=== PATIENT | male | born 1990 | race Hispanic/Latino ===

== ENCOUNTER 2017-11-10 10:08 | Emergency (ER) | payer BC ==
[2018-01-25] MEDS ORDERED: DIAZ10TA4 PO (13:06)
[2018-01-25] MEDS ORDERED: TYL3 PO (13:06)
[2018-01-25] MEDS ORDERED: BACL10TA PO (13:06)
[2018-01-25] MEDS ORDERED: NAPR-1023 PO (13:06)
[2018-01-25] MEDS ORDERED: TRAM-355 PO (13:06)
== END 2017-11-10 11:10 | disposition home or self-care (01) ==
LOC: EDH 10:08
DX: R25.2 Cramp and spasm (principal); Z88.0 Allergy status to penicillin

== ENCOUNTER 2018-01-28 05:42 | Inpatient (IN) | payer BC ==
[2018-01-25 12:29] VITALS: BP 142/91
[2018-01-25 12:29] LABS: BASOPHILS % (AUTO) 0.4 % (0.0-5.0); EOSINOPHILS % (AUTO) 1.9 % (0.0-8.0); HEMATOCRIT 44.7 % (42-54); LYMPHOCYTES % (AUTO) 31.1 % (21.0-51.0); MEAN CORPUSCULAR HEMOGLOBIN 30.2 pg (27.0-33.0); MEAN CORPUSCULAR HGB CONC 35.4 g/dL (32.0-36.0); MEAN CORPUSCULAR VOLUME 85.5 fL (79-99); MONOCYTES % (AUTO) 9.6 % (3.0-13.0); NUCLEATED RED BLOOD CELLS 0.1 % (0.0-0.19); PLATELET COUNT (AUTO) 216 K/uL (130-400); RED BLOOD CELL COUNT(AUTO) 5.23 MIL/uL (4.50-6.20); RED CELL DISTRIBUTION WIDTH 13.3 % (11.0-15.5); WHITE BLOOD COUNT (AUTO) 9.7 K/uL (4.8-10.8)
[~2018-01-28] VITALS: Ht 167.6 cm; Wt 96.6 kg
[2018-01-28] VITALS (20 sets, daily range): BP systolic 96–137; BP diastolic 41–77
[2018-01-28] MEDS: CLINDAMYCIN 900 MG/D5% WATER 50 ML IV SCH ×2 (05:00→09:00)
[~2018-01-28 05:42] MED LIST: BACL10TA PO; DIAZ10TA4 PO; NAPR-1023 PO; TRAM-355 PO; TYL3 PO
[2018-01-28] MEDS ORDERED: LACTATED RINGERS 1000ML 1,000 ML IV ONE (06:36)
[2018-01-28] MEDS ORDERED: DEXAMETHASONE SOD PHOSPHATE 10MG/ML 1ML VIAL ONE ×2 (07:43→08:18)
[2018-01-28] MEDS ORDERED: NEOSTIGMINE 5MG/5ML SYR IV ONE ×2 (07:44→08:18)
[2018-01-28] MEDS ORDERED: MIDAZOLAM HCL 1 MG/ML 2ML VIAL ONE ×2 (07:44→08:19)
[2018-01-28] MEDS ORDERED: LIDOCAINE PF 2% 5ML ABBOJECT ONE (07:44)
[2018-01-28] MEDS ORDERED: PROPOFOL 10 MG/ML 20ML VIAL IV ONE (07:44)
[2018-01-28] MEDS ORDERED: FENTANYL CITRATE PF 50 MCG/1 ML 2ML VIAL ONE ×4 (07:44→10:13)
[2018-01-28] MEDS ORDERED: GLYCOPYRROLATE 0.2 MG/ML 5 ML VIAL ONE ×2 (07:44→08:17)
[2018-01-28] MEDS ORDERED: SUCCINYLCHOLINE CHLORIDE 20 MG/ML 10 ML VIAL ONE (08:17)
[2018-01-28] MEDS ORDERED: ROCURONIUM BROMIDE 10MG/1ML 5ML VL ONE (08:17)
[2018-01-28] MEDS ORDERED: PHENYLEPHRINE HCL 10 MG/ML 1ML VIAL IV ONE (08:18)
[2018-01-28] MEDS ORDERED: BUPIVACAINE/EPI/PF 0.25% 30ML VIAL IJ ONE (08:47)
[2018-01-28] MEDS ORDERED: THROMBIN-JMI 20000 UNIT KIT TP ONE (08:48)
[2018-01-28] MEDS ORDERED: DURAMORPH PF1 MG/ML 10ML AMP IV ONE (08:48)
[2018-01-28] MEDS ORDERED: BACITRACIN 50,000 UNIT VIAL ONE (08:48)
[2018-01-28] MEDS ORDERED: ESMOLOL HCL 10 MG/ML 10 ML VIAL ONE (10:25)
[2018-01-28] MEDS: LACTATED RINGERS 1000ML 1,000 ML IV SCH ×2 (10:54→22:54)
[2018-01-28] MEDS ORDERED: DIAZEPAM 5 MG TABLET PO PRN (11:00)
[2018-01-28] MEDS ORDERED: SODIUM CHLORIDE 0.9% 10 ML VIAL IVP PRN (11:00)
[2018-01-28] MEDS ORDERED: TRAMADOL /APAP 37.5MG/325MG TAB PO SCH (11:00)
[2018-01-28] MEDS ORDERED: MORPHINE SULFATE 2 MG/ML 1ML SYG IVP PRN (11:00)
[2018-01-28] MEDS ORDERED: HYDROCODONE/ACETAMINOPHEN 5/325 MG TAB PO PRN (11:00)
[2018-01-28] MEDS ORDERED: ACETAMINOPHEN-CODEINE 300/30MG TAB PO PRN (11:00)
[2018-01-28] MEDS ORDERED: PROMETHAZINE HCL 25 MG/ML 1ML AMPULE IM PRN (11:00)
[2018-01-28] MEDS ORDERED: BACLOFEN 10 MG TABLET PO SCH (11:00)
[2018-01-28] MEDS ORDERED: MEPERIDINE-PF 25 MG/ML SYG ONE (11:17)
[2018-01-28] MEDS ORDERED: CLINDAMYCIN 900 MG/D5% WATER 50 ML IV SCH (12:00)
[2018-01-28] MEDS ORDERED: MORPHINE SULFATE 4 MG/1ML SYG ONE (12:49)
[2018-01-28] MEDS: DEXAMETHASONE SOD PHOSPHATE 4 MG/ML 1ML VIAL IVP SCH ×3 (12:54→23:30)
[2018-01-28] MEDS ORDERED: MORPHINE SULFATE 4 MG/1ML SYG IVP PRN (20:23)
[2018-01-28] MEDS: NAPROXEN 500 MG TABLET PO SCH (20:34)
[2018-01-29 00:08] VITALS: BP 114/56
[2018-01-29 04:00] VITALS: BP 112/56
[2018-01-29] MEDS: DEXAMETHASONE SOD PHOSPHATE 4 MG/ML 1ML VIAL IVP SCH (04:32)
[2018-01-29 07:30] VITALS: BP 107/66
[2018-01-29] MEDS: NAPROXEN 500 MG TABLET PO SCH (08:45)
== END 2018-01-29 11:20 | disposition home or self-care (01) | DRG 520 ==
LOC: DAHIP 05:42 → 4AH 11:37
PROVIDERS: ADMIT Neurological Surgery; ATTEND Neurological Surgery
PROC: 0SB20ZZ Excision of Lumbar Vertebral Disc, Open Approach (ICD-10-PCS; principal; 2018-01-28 09:07)
PROC: 4A11X4G Monitoring of Peripheral Nervous Electrical Activity, Intraoperative, External Approach (ICD-10-PCS; 2018-01-28 09:07)
PROC: BR131ZZ Fluoroscopy of Lumbar Disc(s) using Low Osmolar Contrast (ICD-10-PCS; 2018-01-28 09:07)
DX: M51.17 Intervertebral disc disorders with radiculopathy, lumbosacral region (principal); Z88.0 Allergy status to penicillin
CPT/HCPCS: 36415; 72020; 80051; 85025; A4344; J0330; J1100; J2001; J2175; J2250; J2270; J2274; J2370; J2550; J2704; J2710; J3010; J3490; J7120

== ENCOUNTER 2018-04-13 07:24 | Inpatient (IN) | payer BC ==
[~2018-04-13] VITALS: Ht 167.6 cm; Wt 99.8 kg
[2018-04-13] MEDS ORDERED: ORPHENADRINE CITRATE 30 MG/ML ML ONE (08:10)
[2018-04-13] MEDS ORDERED: KETOROLAC TROMETHAMINE 60 MG/2 ML VIAL ONE (08:10)
[2018-04-13] MEDS ORDERED: LIDOCAINE 5% TOPICAL PATCH TP ONE (09:00)
[2018-04-13] MEDS ORDERED: FENTANYL CITRATE PF 50 MCG/1 ML 2ML VIAL ONE (10:17)
[2018-04-13] MEDS ORDERED: GADOBENATE DIMEGLUMINE 20 ML IV ONE (14:27)
[2018-04-13 14:30] VITALS: BP 124/75
[2018-04-13] MEDS: TRAMADOL HCL 50 MG TABLET PO SCH ×2 (16:41→22:00)
[2018-04-13 20:12] VITALS: BP 119/71
[2018-04-13] MEDS: MORPHINE SULFATE 2 MG/ML 1ML SYG IVP PRN (22:19)
[2018-04-14 00:12] VITALS: BP 107/51
[2018-04-14] MEDS: MORPHINE SULFATE 2 MG/ML 1ML SYG IVP PRN ×4 (00:50→23:14)
[2018-04-14 04:12] VITALS: BP 116/71
[2018-04-14] MEDS: TRAMADOL HCL 50 MG TABLET PO SCH ×4 (04:14→21:28)
[2018-04-14 07:00] VITALS: BP 119/70
[2018-04-14 11:08] VITALS: BP 122/73
[2018-04-14] MEDS: DEXAMETHASONE SOD PHOSPHATE 4 MG/ML 1ML VIAL IVP SCH ×3 (12:12→23:10)
[2018-04-14 15:32] VITALS: BP 141/76
[2018-04-14 20:36] VITALS: BP 137/68
[2018-04-15] VITALS: BP 134/69
[2018-04-15] MEDS: MORPHINE SULFATE 2 MG/ML 1ML SYG IVP PRN ×6 (02:19→22:14)
[2018-04-15 04:00] VITALS: BP 107/69
[2018-04-15] MEDS: TRAMADOL HCL 50 MG TABLET PO SCH ×4 (04:04→22:14)
[2018-04-15] MEDS: DEXAMETHASONE SOD PHOSPHATE 4 MG/ML 1ML VIAL IVP SCH ×4 (05:47→23:52)
[2018-04-15 07:30] VITALS: BP 138/73
[2018-04-15] MEDS: PANTOPRAZOLE SODIUM 40 MG TABLET.DR PO SCH (08:47)
[2018-04-15 11:00] VITALS: BP 141/68
[2018-04-15 16:00] VITALS: BP 132/78
[2018-04-15] MEDS: LACTULOSE 20 GM/30 ML UDCUP PO PRN (16:05)
[2018-04-15 19:53] VITALS: BP 134/70
[2018-04-15] MEDS: LORAZEPAM 1 MG TABLET PO PRN (20:04)
[2018-04-16] VITALS (7 sets, daily range): BP systolic 109–147; BP diastolic 52–75
[2018-04-16] MEDS: TRAMADOL HCL 50 MG TABLET PO SCH ×4 (04:16→22:00)
[2018-04-16] MEDS: DEXAMETHASONE SOD PHOSPHATE 4 MG/ML 1ML VIAL IVP SCH ×4 (05:56→23:20)
[2018-04-16] MEDS: MORPHINE SULFATE 2 MG/ML 1ML SYG IVP PRN (05:56)
[2018-04-16] MEDS: PANTOPRAZOLE SODIUM 40 MG TABLET.DR PO SCH (09:57)
[2018-04-16] MEDS: ENOXAPARIN SODIUM 30 MG/0.3 ML SQ SCH (10:00)
[2018-04-16] MEDS: CYCLOBENZAPRINE HCL 10 MG TABLET PO PRN ×2 (10:02→21:18)
[2018-04-16] MEDS: LACTULOSE 20 GM/30 ML UDCUP PO PRN ×2 (10:08→19:28)
[2018-04-16] MEDS: KETOROLAC TROMETHAMINE 15MG/ML IV PRN ×2 (13:38→21:18)
[2018-04-16] MEDS ORDERED: CEFAZOLIN 2GM / 50 ML 50 ML IV ONE (14:30)
[2018-04-16] MEDS ORDERED: CEFAZOLIN SODIUM 1 GM VIAL IVP SCH (15:00)
[2018-04-16 15:31] LABS: BASOPHILS % (AUTO) 0.4 % (0.0-5.0); HEMATOCRIT 49.7 % (42-54); LYMPHOCYTES % (AUTO) 10.2 % (21.0-51.0); MEAN CORPUSCULAR HEMOGLOBIN 30.1 pg (27.0-33.0); MEAN CORPUSCULAR HGB CONC 34.9 g/dL (32.0-36.0); MEAN CORPUSCULAR VOLUME 86.1 fL (79-99); MONOCYTES % (AUTO) 6.7 % (3.0-13.0); NEUTROPHILS % (AUTO) 82.7 % (40.0-77.0); PLATELET COUNT (AUTO) 293 K/uL (130-400); RED BLOOD CELL COUNT(AUTO) 5.77 MIL/uL (4.50-6.20); RED CELL DISTRIBUTION WIDTH 13.2 % (11.0-15.5); WHITE BLOOD COUNT (AUTO) 17.6 K/uL (4.8-10.8)
[2018-04-16 15:42] LABS: ALBUMIN 3.9 g/dL (3.5-5.0); BILIRUBIN,TOTAL 0.3 mg/dL (0.2-1.0); TOTAL PROTEIN, SERUM 7.6 g/dL (6.0-8.3)
[2018-04-16] MEDS: LORAZEPAM 1 MG TABLET PO PRN (19:57)
[2018-04-16] MEDS: CITALOPRAM 20 MG TABLET PO SCH (19:57)
[2018-04-17] MEDS: MORPHINE SULFATE 2 MG/ML 1ML SYG IVP PRN ×3 (02:22→23:18)
[2018-04-17 04:00] VITALS: BP 108/57
[2018-04-17] MEDS: TRAMADOL HCL 50 MG TABLET PO SCH ×4 (04:00→23:14)
[2018-04-17] MEDS: DEXAMETHASONE SOD PHOSPHATE 4 MG/ML 1ML VIAL IVP SCH ×4 (05:53→23:14)
[2018-04-17] MEDS: PANTOPRAZOLE SODIUM 40 MG TABLET.DR PO SCH (07:27)
[2018-04-17] MEDS: ENOXAPARIN SODIUM 30 MG/0.3 ML SQ SCH (07:28)
[2018-04-17] MEDS: CYCLOBENZAPRINE HCL 10 MG TABLET PO PRN ×3 (08:12→23:15)
[2018-04-17] MEDS: KETOROLAC TROMETHAMINE 15MG/ML IV PRN ×2 (08:12→16:18)
[2018-04-17] MEDS: LACTULOSE 20 GM/30 ML UDCUP PO PRN (08:13)
[2018-04-17 08:24] VITALS: BP 149/77
[2018-04-17 11:20] VITALS: BP 130/70
[2018-04-17 16:25] VITALS: BP 138/62
[2018-04-17 19:28] VITALS: BP 118/61
[2018-04-17] MEDS: CITALOPRAM 20 MG TABLET PO SCH (19:44)
[2018-04-17 23:26] VITALS: BP 129/67
[2018-04-18 04:00] VITALS: BP 116/52
[2018-04-18] MEDS: DEXAMETHASONE SOD PHOSPHATE 4 MG/ML 1ML VIAL IVP SCH ×4 (05:02→23:19)
[2018-04-18] MEDS: TRAMADOL HCL 50 MG TABLET PO SCH ×4 (05:05→21:53)
[2018-04-18 07:33] VITALS: BP 139/73
[2018-04-18] MEDS: LACTULOSE 20 GM/30 ML UDCUP PO PRN ×2 (10:38→10:46)
[2018-04-18] MEDS: ENOXAPARIN SODIUM 30 MG/0.3 ML SQ SCH (10:39)
[2018-04-18] MEDS: PANTOPRAZOLE SODIUM 40 MG TABLET.DR PO SCH (10:39)
[2018-04-18] MEDS ORDERED: BISACODYL 10 MG SUPP.RECT RC ONE (10:41)
[2018-04-18] MEDS ORDERED: BISACODYL 10 MG SUPP.RECT RC PRN (10:45)
[2018-04-18 11:56] VITALS: BP 140/75
[2018-04-18] MEDS: KETOROLAC TROMETHAMINE 15MG/ML IV PRN ×2 (12:10→18:09)
[2018-04-18] MEDS: CYCLOBENZAPRINE HCL 10 MG TABLET PO PRN ×2 (12:11→18:09)
[2018-04-18 16:24] VITALS: BP 127/69
[2018-04-18] MEDS: CITALOPRAM 20 MG TABLET PO SCH (19:58)
[2018-04-18 20:08] VITALS: BP 128/79
[2018-04-19] VITALS (7 sets, daily range): BP systolic 122–150; BP diastolic 61–89
[2018-04-19] MEDS: MORPHINE SULFATE 2 MG/ML 1ML SYG IVP PRN ×4 (02:06→20:35)
[2018-04-19] MEDS: TRAMADOL HCL 50 MG TABLET PO SCH ×4 (04:01→23:12)
[2018-04-19] MEDS: DEXAMETHASONE SOD PHOSPHATE 4 MG/ML 1ML VIAL IVP SCH ×4 (05:22→23:12)
[2018-04-19] MEDS: PANTOPRAZOLE SODIUM 40 MG TABLET.DR PO SCH (08:54)
[2018-04-19] MEDS: CITALOPRAM 20 MG TABLET PO SCH (20:14)
[2018-04-19] MEDS: LORAZEPAM 1 MG TABLET PO PRN (21:59)
[2018-04-20] VITALS (24 sets, daily range): BP systolic 119–147; BP diastolic 61–90
[2018-04-20] MEDS: TRAMADOL HCL 50 MG TABLET PO SCH ×4 (03:43→22:00)
[2018-04-20] MEDS: DEXAMETHASONE SOD PHOSPHATE 4 MG/ML 1ML VIAL IVP SCH ×5 (05:30→18:45)
[2018-04-20] MEDS: MORPHINE SULFATE 2 MG/ML 1ML SYG IVP PRN (05:31)
[2018-04-20] MEDS ORDERED: BACITRACIN 50,000 UNIT VIAL ONE ×2 (06:43→12:12)
[2018-04-20] MEDS ORDERED: DURAMORPH PF1 MG/ML 10ML AMP IV ONE (06:43)
[2018-04-20] MEDS ORDERED: EPINEPHRINE 1 MG/ML AMPULE ONE (06:43)
[2018-04-20] MEDS ORDERED: THROMBIN-JMI 20000 UNIT KIT TP ONE (06:43)
[2018-04-20] MEDS ORDERED: BUPIVACAINE/PF 0.25% 30ML VIAL IJ ONE (06:43)
[2018-04-20] MEDS ORDERED: LACTATED RINGERS 1000ML 1,000 ML IV ONE (07:00)
[2018-04-20] MEDS ORDERED: GLYCOPYRROLATE 0.2 MG/ML 5 ML VIAL ONE (07:02)
[2018-04-20] MEDS ORDERED: DEXAMETHASONE SOD PHOSPHATE 10MG/ML 1ML VIAL ONE ×2 (07:02→08:17)
[2018-04-20] MEDS ORDERED: ONDANSETRON HCL 4 MG/2 ML VIAL ONE ×2 (07:02→08:18)
[2018-04-20] MEDS ORDERED: LIDOCAINE PF 2% 5ML ABBOJECT ONE (07:02)
[2018-04-20] MEDS ORDERED: NEOSTIGMINE 5MG/5ML SYR IV ONE (07:02)
[2018-04-20] MEDS ORDERED: PROPOFOL 10 MG/ML 20ML VIAL IV ONE (07:03)
[2018-04-20] MEDS ORDERED: MIDAZOLAM HCL 1 MG/ML 2ML VIAL ONE (07:03)
[2018-04-20] MEDS ORDERED: FENTANYL CITRATE PF 50 MCG/1 ML 2ML VIAL ONE ×3 (07:05→13:15)
[2018-04-20] MEDS ORDERED: CLINDAMYCIN 900 MG/D5% WATER 50 ML IV ONE (07:06)
[2018-04-20] MEDS ORDERED: CLINDAMYCIN 900 MG/D5% WATER 50 ML IV SCH (07:15)
[2018-04-20] MEDS ORDERED: ROCURONIUM BROMIDE 10MG/1ML 5ML VL ONE ×3 (08:17)
[2018-04-20] MEDS ORDERED: METOCLOPRAMIDE 10 MG/2 ML VIAL ONE (08:17)
[2018-04-20] MEDS ORDERED: SUCCINYLCHOLINE CHLORIDE 20 MG/ML 10 ML VIAL ONE (08:17)
[2018-04-20] MEDS ORDERED: LIDOCAINE HCL 2% JELLY 5 ML ONE (08:19)
[2018-04-20] MEDS ORDERED: PHENYLEPHRINE HCL 10 MG/ML 1ML VIAL IV ONE (08:20)
[2018-04-20] MEDS: PANTOPRAZOLE SODIUM 40 MG TABLET.DR PO SCH (09:00)
[2018-04-20] MEDS ORDERED: GENTAMICIN SULFATE 80 MG/2 ML VIAL ONE (10:17)
[2018-04-20] MEDS ORDERED: FENTANYL CITRATE PF 50 MCG/1 ML 5ML AMP IV ONE (10:56)
[2018-04-20] MEDS ORDERED: HYDROCODONE/ACETAMINOPHEN 5/325 MG TAB PO PRN (12:45)
[2018-04-20] MEDS ORDERED: PROMETHAZINE HCL 25 MG/ML 1ML AMPULE IM PRN (12:45)
[2018-04-20] MEDS ORDERED: TRAMADOL /APAP 37.5MG/325MG TAB PO SCH (12:45)
[2018-04-20] MEDS ORDERED: DIAZEPAM 5 MG TABLET PO PRN (12:45)
[2018-04-20] MEDS ORDERED: SODIUM CHLORIDE 0.9% 10 ML VIAL IVP PRN (12:45)
[2018-04-20] MEDS ORDERED: MORPHINE SULFATE 2 MG/ML 1ML SYG IVP PRN (12:45)
[2018-04-20] MEDS ORDERED: BACLOFEN 10 MG TABLET PO SCH (12:45)
[2018-04-20] MEDS ORDERED: ACETAMINOPHEN-CODEINE 300/30MG TAB PO PRN (12:45)
[2018-04-20] MEDS ORDERED: MEPERIDINE-PF 25 MG/ML SYG ONE ×2 (13:06→13:30)
[2018-04-20] MEDS: CLINDAMYCIN 900 MG/D5% WATER 50 ML IV SCH ×2 (14:12→17:16)
[2018-04-20] MEDS: LACTATED RINGERS 1000ML 1,000 ML IV SCH (14:12)
[2018-04-20] MEDS: NAPROXEN 500 MG TABLET PO SCH (22:16)
[2018-04-20] MEDS: CITALOPRAM 20 MG TABLET PO SCH (22:17)
[2018-04-21] VITALS (7 sets, daily range): BP systolic 119–138; BP diastolic 60–79
[2018-04-21] MEDS: DEXAMETHASONE SOD PHOSPHATE 4 MG/ML 1ML VIAL IVP SCH ×9 (00:45→23:36)
[2018-04-21] MEDS: CLINDAMYCIN 900 MG/D5% WATER 50 ML IV SCH ×2 (01:10→06:42)
[2018-04-21] MEDS: TRAMADOL HCL 50 MG TABLET PO SCH ×5 (03:12→20:57)
[2018-04-21] MEDS: LACTATED RINGERS 1000ML 1,000 ML IV SCH (06:42)
[2018-04-21] MEDS: NAPROXEN 500 MG TABLET PO SCH ×2 (09:02→20:54)
[2018-04-21] MEDS: PANTOPRAZOLE SODIUM 40 MG TABLET.DR PO SCH (09:02)
[2018-04-21] MEDS: CITALOPRAM 20 MG TABLET PO SCH (20:53)
[2018-04-22] MEDS: DEXAMETHASONE SOD PHOSPHATE 4 MG/ML 1ML VIAL IVP SCH ×2 (00:45→06:20)
[2018-04-22 05:02] VITALS: BP 123/62
[2018-04-22 08:00] VITALS: BP 120/67
[2018-04-22] MEDS: PANTOPRAZOLE SODIUM 40 MG TABLET.DR PO SCH (09:17)
[2018-04-22] MEDS: NAPROXEN 500 MG TABLET PO SCH (09:17)
== END 2018-04-22 11:50 | disposition home or self-care (01) | DRG 460 ==
LOC: EDH 07:24 → EDHIP 12:00 → OBSVTOIN 12:00 → 4CH 14:08 → 4BH 20:45
PROVIDERS: ADMIT Neurological Surgery; ATTEND Neurological Surgery
PROC: 0SG30K1 Fusion of Lumbosacral Joint with Nonautologous Tissue Substitute, Posterior Approach, Posterior Column, Open Approach (ICD-10-PCS; principal; 2018-04-20 07:30)
PROC: 0SB40ZZ Excision of Lumbosacral Disc, Open Approach (ICD-10-PCS; 2018-04-20 07:30)
PROC: BR1 Imaging, Axial Skeleton, Except Skull and Facial Bones, Fluoroscopy (ICD-10-PCS; 2018-04-20 07:30)
PROC: 4A11X4G Monitoring of Peripheral Nervous Electrical Activity, Intraoperative, External Approach (ICD-10-PCS; 2018-04-20 07:30)
DX: M51.27 Other intervertebral disc displacement, lumbosacral region (principal); X50.0XXA Overexertion from strenuous movement or load, initial encounter; Z88.0 Allergy status to penicillin
CPT/HCPCS: 36415; 71045; 72100; 72158; 76000; 80053; 85025; 93005; A4344; A9577; J0171; J0330; J0690; J1100; J1580; J1650; J1885; J2001; J2175; J2250; J2274; J2370; J2405; J2704; J2710; J2765; J3010; J3490; J7120

== ENCOUNTER 2019-11-27 18:26 | Emergency (ER) | payer BC ==
[2019-11-27 18:56] LABS: BASOPHILS % (AUTO) 0.5 % (0.0-5.0); EOSINOPHILS % (AUTO) 3.1 % (0.0-8.0); LYMPHOCYTES % (AUTO) 39.6 % (21.0-51.0); MEAN CORPUSCULAR HEMOGLOBIN 29.4 pg (27.0-33.0); MEAN CORPUSCULAR VOLUME 83.9 fL (79-99); MONOCYTES % (AUTO) 6.1 % (3.0-13.0); NEUTROPHILS % (AUTO) 50.4 % (40.0-77.0); PLATELET COUNT (AUTO) 210 K/uL (130-400); RED BLOOD CELL COUNT(AUTO) 4.77 MIL/uL (4.50-6.20); RED CELL DISTRIBUTION WIDTH 12.5 % (11.0-15.5); WHITE BLOOD COUNT (AUTO) 8.6 K/uL (4.8-10.8)
[2019-11-27 19:09] LABS: CREATININE 0.9 mg/dL (0.5-1.5); POTASSIUM 3.7 mmol/L (3.5-5.1)
[2019-11-27 19:10] LABS: INR 0.98 (0.85-1.15); PARTIAL THROMBOPLASTIN TIME 31.3 SEC (26.3-35.5); PROTHROMBIN TIME 10.3 SEC (9.6-11.6)
[2019-11-27 19:14] LABS: ALBUMIN 3.9 g/dL (3.5-5.0); BILIRUBIN,TOTAL 0.2 mg/dL (0.2-1.0); TOTAL PROTEIN, SERUM 7.5 g/dL (6.0-8.3)
[2019-11-27] MEDS ORDERED: ONDANSETRON HCL 4 MG/2 ML VIAL ONE (20:21)
[2019-11-27] MEDS ORDERED: METHYLPREDNISOLONE SOD SUCC 125MG/2ML VIAL ONE (20:22)
[2019-11-27] MEDS ORDERED: KETOROLAC TROMETHAMINE 30MG/ML ONE (20:22)
== END 2019-11-27 20:40 | disposition home or self-care (01) ==
LOC: EDH 18:26
DX: G51.0 Bell's palsy (principal); R51 Headache; Z88.0 Allergy status to penicillin
CPT/HCPCS: 36415; 70450; 80053; 82550; 84484; 85025; 85610; 85730; 93005; 96374; 96375; 99285; J1885; J2405; J2930

== ENCOUNTER → 2023-02-03 | Outpatient (CLI) | payer BC ==
[~2023-02-03] MED LIST changes: +GADOTERATE MEGLUMINE 10 MMOL/20 ML VIAL IV ONE
== END | disposition home or self-care (01) ==
LOC: RAH 14:20
PROVIDERS: ATTEND Neurological Surgery
DX: M48.07 Spinal stenosis, lumbosacral region (principal)
CPT/HCPCS: 72158; A9575